=== PATIENT | female | born 1950 | race Caucasian/White ===

== ENCOUNTER 2018-09-10 15:22 | Emergency (ER) | payer MEDICARE, OTHER, SELFPAY ==
[2018-09-10 15:29] VITALS: BP 137/96; PULSE 80; RESP 20; TEMP 36.9; O2SAT 97
--- NOTE | 2018-09-10 15:50 | ED_ITS ---
HPI - Back Pain/Injury <WANDY Stock - Last Filed: 09/10/18 21:54> General Chief Complaint: Back Pain/Injury Stated Complaint: lower back pain for several days and not sleeping Time Seen by Provider: 09/10/18 15:24 Source: patient Mode of arrival: ambulatory Limitations: no limitations History of Present Illness HPI Narrative: 68-year-old female here for complaint of pain into her right lower back area over the past couple weeks. She has been seen for this by her primary care provider and was given a small amount of Valium and Decadron for the treatment. She reports that the treatment did help however over the past couple of days her pain has returned. She denies any trauma to the area. She denies any loss of bladder or bowel control. She is ambulatory into the emergency room. She reports that pain radiates down into her right thigh area. Related Data Previous Rx's Medication Instructions Recorded diazepam 2 mg PO TID-QID PRN #15 tab 09/10/18 prednisone See Label Instructions PO PER PKG 09/10/18 DIR #21 each Allergies Allergy/AdvReac Type Severity Reaction Status Date / Time Sulfa (Sulfonamide Allergy Severe Rash Verified 09/10/18 15:54 Antibiotics) propoxyphene AdvReac Intermediate Gastrointestinal Verified 09/10/18 15:54 Upset muscle relaxers AdvReac Uncoded 09/10/18 15:51 Review of Systems <WANDY Stock - Last Filed: 09/10/18 21:54> Constitutional Denies chills, Denies fever(s), Denies lethargy and Denies weakness Eyes Denies change in vision, Denies eye discharge, Denies irritation and Denies loss of vision ENT Ears, Nose, Mouth, and Throat: Denies change in voice, Denies neck pain and Denies sore throat Cardiovascular Denies chest pain, Denies irregular heart rhythm, Denies lightheadedness, Denies palpitations, Denies dyspnea, Denies dyspnea on exertion and Denies orthopnea Respiratory Denies cough, Denies dyspnea, Denies dyspnea on exertion and Denies wheezing Genitourinary Denies hematuria, Denies flank pain, Denies urinary incontinence and Denies urinary urgency Musculoskeletal Denies neck pain Comments: Back pain Integumentary/Breasts Denies pruritus, Denies erythema, Denies rash and Denies wounds Neurologic Denies confusion, Denies loss of vision and Denies weakness Psychiatric Denies anxiety, Denies confusion, Denies depression, Denies homicidal ideation and Denies suicidal ideation Endocrine Denies palpitations Hematologic/Lymphatic Denies easy bruising Allergic/Immunologic Denies wheezing Exam <WANDY Stock - Last Filed: 09/10/18 21:54> Initial Vital Signs Initial Vital Signs: Vital Signs Temperature 98.4 F 09/10/18 15:29 Pulse Rate 80 09/10/18 15:29 Respiratory Rate 20 09/10/18 15:29 Blood Pressure 137/96 H 09/10/18 15:29 Pulse Oximetry 97 09/10/18 15:29 Const General: cooperative and well developed Nutritional Appearance: well nourished Orientation: alert, awake, oriented x3 and not confused HENDE Mouth: oral mucosae normal and moist mucous membranes Eyes Conjunctivae: conjunctivae normal Sclera: sclerae normal Pupils: PERRL EOM: EOM intact bilaterally Neck Neck: normal visual inspection, trachea midline, No lymphadenopathy, No midline deformity and No JVD Lymphatic: No lymphedema Resp Effort & Inspection: normal respiratory effort, able to speak in complete sentences, no respiratory distress and no use of accessory muscles Auscultation: clear to auscultation bilaterally, no rales, no rhonchi and no wheezes Cardio Rate: regular rate Rhythm: regular rhythm Heart Sounds: no click, no gallops, no murmurs and no rubs Pulses: normal peripheral pulses Back/Spine/Pelvis Sacrum: tenderness (Tenderness on palpation to the right SI joint no deformities. Distal sensation is intact. Distal range of motion intact. Distal cap refill less than 2 sec) Skin General: no rashes or lesions noted, No jaundice and No petechiae <Franny Cedeno DO - Last Filed: 09/11/18 18:30> Initial Vital Signs Initial Vital Signs: Vital Signs Temperature 98.4 F 09/10/18 15:29 Pulse Rate 80 09/10/18 15:29 Respiratory Rate 20 09/10/18 15:29 Blood Pressure 137/96 H 09/10/18 15:29 Pulse Oximetry 97 09/10/18 15:29 Course <WANDY Stock - Last Filed: 09/10/18 21:54> Orders Ordered: Discontinued Medications Diazepam (Valium) 2 mg PO NOW ONE Stop: 09/10/18 15:51 Last Admin: 09/10/18 16:02 Dose: 2 mg Vital Signs - 8 hr 09/10/18 15:29 09/10/18 16:16 Temperature 98.4 F Pulse Rate 80 67 Respiratory Rate 20 18 Blood Pressure 137/96 H 157/80 H Pulse Oximetry 97 98 <Franny Cedeno DO - Last Filed: 09/11/18 18:30> Orders Ordered: Discontinued Medications Diazepam (Valium) 2 mg PO NOW ONE Stop: 09/10/18 15:51 Last Admin: 09/10/18 16:02 Dose: 2 mg Vital Signs - 8 hr 09/10/18 15:29 09/10/18 16:16 Temperature 98.4 F Pulse Rate 80 67 Respiratory Rate 20 18 Blood Pressure 137/96 H 157/80 H Pulse Oximetry 97 98 MDM - Back Pain/Injury <WANDY Stock - Last Filed: 09/10/18 21:54> MDM Narrative Medical decision making narrative: Refill of Valium as prescribed to help with muscle spasm. Prednisone taper dose is prescribed to help with anti- inflammatory effects. [id number] Tylenol as needed for any discomfort. Follow up with primary care provider this week. Return emergency room for any worsening symptoms. Discharge Plan Departure Patient Disposition: Home Clinical Impression: Sciatica Discharge Date/Time: 09/10/18 16:18 Interventions: ED Discharge Assessment Last Done: 09/10/18 16:16 Instructions: DI for Low Back Pain Activity Restrictions/Additional Instructions: Refill of Valium as prescribed to help with muscle spasm use as directed. Here placed on a prednisone taper dose pack use as instructed for anti-inflammatory processes. Gentle range of motion painful area to help keep muscles loose. Use [id number] Tylenol as needed for any discomfort. Follow up with your primary care provider later this week for re-evaluation. Return emergency room for worsening symptoms. Prescriptions: New prednisone 10 mg tablets,dose pack See Label Instructions PO PER PKG DIR Qty: 21 RF: 0 diazepam 2 mg tablet 2 mg PO TID-QID PRN (Reason: muscle spasm) Qty: 15 RF: 0 Referrals: Arsen Alberto MD [Primary Care Provider] - <DO Crys Suarez Last Filed: 09/11/18 18:30> Cosign ED Attending Cosignature Attestation: I was immediately available in the department for consultation. This documentation has been reviewed and I agree with assessment and plan. Supervised by Franny Cedeno DO
[2018-09-10] MEDS: diazePAM 2 MG TABLET PO (16:02)
[2018-09-10 16:16] VITALS: BP 157/80; PULSE 67; RESP 18; O2SAT 98
== END 2018-09-10 16:18 | disposition home or self-care (01) ==
PROVIDERS: Emergency Provider Nurse Practitioner Family; PCP Family Medicine
DX: M54.30 Sciatica, unspecified side (principal)
CPT/HCPCS: 99282; 99283

== ENCOUNTER → 2018-09-30 13:27 | Outpatient (CLI) | payer MEDICARE, OTHER, SELFPAY ==
--- NOTE | 2018-09-30 13:33 | DI.MRI.S_ITS ---
PROCEDURE: MR LUMBAR SPINE WO CON INDICATIONS: LOW BACK PAIN WITH RT RADICULOPATHY TECHNIQUE: Noncontrast sagittal T1 spin echo and T2 fast echo, sagittal STIR, axial T1 and T2 fast spin echo through the lumbar spine. In cases with scoliosis, additional coronal T2 fast spin echo may be performed. COMPARISON: None. FINDINGS: Image quality: Excellent. Alignment and Curvature: Minimal anterolisthesis of L4 on L5 is seen. Bone Marrow: Marrow is of normal overall signal. No acute vertebral body compression fractures. Spinal Cord: Conus medullaris terminates at T12-L1 level. Visualized cord demonstrates normal signal and size. Paraspinous Soft Tissues: No paravertebral masses. L1-L2: Normal appearance. L2-L3: There is broad-based disc bulge and bilateral facet arthrosis with mild central canal stenosis and mild right-sided neuroforaminal narrowing. L3-L4: There is broad-based disc bulge and bilateral facet arthrosis and hypertrophy of ligamentum flavum causing mild to moderate central canal stenosis and mild bilateral neuroforaminal narrowing. L4-L5: The broad-based disc bulge and bilateral facet arthrosis is seen with hypertrophy of ligamentum flavum. There is moderate central canal stenosis and moderate bilateral neuroforaminal narrowing. Bulging disc likely contacting bilateral L4 and L5 nerve roots. L5-S1: Diffuse disc bulge and bilateral facet arthrosis is seen with mild central canal stenosis and bilateral neuroforaminal narrowing. IMPRESSION: 1. Degenerative disc bulge and bilateral facet arthrosis at L2-3 through L5-S1 levels causing mild to moderate central canal stenosis and bilateral neuroforaminal narrowing most prominent at L4-5 level as above. 2. Minimal anterolisthesis of L4 on L5. No marrow edema. No compression fracture. Dictated by: Steve Harrison M.D. on 10/02/2018 at 9:04 Approved by: Steve Harrison M.D. on 10/02/2018 at 9:08
== END ==
PROVIDERS: PCP Family Medicine; Visit Provider Family Medicine
DX: M54.5 Low back pain (principal); M51.16 Intervertebral disc disorders with radiculopathy, lumbar region; M48.061 Spinal stenosis, lumbar region without neurogenic claudication; M47.26 Other spondylosis with radiculopathy, lumbar region
CPT/HCPCS: 72148